=== PATIENT | female | born 1955 | race Caucasian/White ===

== ENCOUNTER 2017-04-05 18:37 | Inpatient (IN) | payer OTHER ==
[~2017-04-05] VITALS: Ht 160 cm; Wt 86.2 kg
--- NOTE | 2017-04-05 18:45 | NUR ---
BBRA [id number] FROM HOME C/C ABD PAIN AND L FLANK PAIN SINCE TODAY, NAD NOTED, VSS, RESP EVEN AND UNLABORED, PT PUT ON MONITOR, WAITING FOR MD SNYDER.
[2017-04-05] MEDS ORDERED: ONDANSETRON HCL/PF 4 MG/2 ML VIAL ONE (18:48)
[2017-04-05 18:56] LABS: APPEARANCE,URINE Clear (CLEAR); BILIRUBIN,URINE Negative (NEGATIVE); BLOOD, URINE Small Ery/uL (NEGATIVE); COLOR,URINE Yellow (YELLOW); KETONES,URINE Negative (NEGATIVE); LEUKOCYTE ESTERASE ,URINE Negative (NEGATIVE); NITRITE, URINE Negative (NEGATIVE); PH,URINE 5.5 (5.0-8.0); PROTEIN,URINE >=300 mg/dl (NEGATIVE); UGLUCOSE Negative (NEGATIVE); UROBILINOGEN,URINE 0.2 EU/dL (0.2)
[2017-04-05] MEDS ORDERED: ONDANSETRON HCL/PF 4 MG/2 ML VIAL IVP ONE (19:00)
[2017-04-05] MEDS ORDERED: IV NS 0.9% 1,000 ML BAG IV ONE (19:00)
[2017-04-05 19:01] LABS: BASOPHILS % (AUTO) 0.2 % (0.0-2.0); EOSINOPHILS % (AUTO) 0.3 % (0.0-6.0); HEMATOCRIT 44 % (33-45); HEMOGLOBIN 14.8 g/dL (11.5-14.8); LYMPHOCYTES # (AUTO) 1.7 /CMM (0.8-4.8); LYMPHOCYTES % (AUTO) 13.6 % (20.0-44.0); MEAN CORPUSCULAR HEMOGLOBIN 30 PG (26.0-33.0); MEAN CORPUSCULAR HGB CONC 33 g/dl (31.0-36.0); MEAN CORPUSCULAR VOLUME 89 fL (82-100); MONOCYTES # (AUTO) 0.4 /CMM (0.1-1.30); MONOCYTES % (AUTO) 3.4 % (2.0-12.0); NEUTROPHILS # (AUTO) 10.1 /CMM (1.8-8.9); NEUTROPHILS % (AUTO) 82.5 % (43.0-81.0); PLATELET COUNT (AUTO) 343 /CMM (150-450); RDW COEFFICIENT OF VARIATION 12.1 (11.5-15.0); RED BLOOD CELL COUNT(AUTO) 4.98 MIL/uL (4.0-5.2); WHITE BLOOD COUNT (AUTO) 12.2 K/uL (4.3-11.0)
[2017-04-05] MEDS ORDERED: MORPHINE SULFATE INJ 4 MG/ML DISP.SYRIN ONE (19:04)
[2017-04-05 19:08] LABS: BACTERIA,URINE Rare /HPF (None Seen); HYALINE CASTS, URINE Few /LPF (None Seen); SQUAMOUS EPITHELIAL CELL,UR Few /HPF (None Seen); WBC,URINE NONE SEEN /HPF (0-3)
[2017-04-05] MEDS ORDERED: MORPHINE SULFATE INJ 2 MG/ML DISP.SYRIN IV ONE (19:30)
[2017-04-05] MEDS ORDERED: HYDROMORPHONE 1 MG/1 ML DISP.SYRIN IV ONE ×2 (19:30→21:00)
[2017-04-05 19:32] LABS: ALANINE AMINOTRANSFERASE 66 U/L (12-78); ALBUMIN 4.1 g/dL (3.4-5.0); ALKALINE PHOSPHATASE 67 U/L (46-116); ASPARTATE AMINOTRANSFERASE 29 U/L (15-37); BILIRUBIN,TOTAL 0.4 mg/dL (0.2-1.0); CALCIUM, SERUM 9.5 mg/dL (8.5-10.1); CARBON DIOXIDE 26 mmol/L (21-32); CHLORIDE 105 mmol/L (98-107); CREATININE 0.8 mg/dL (0.6-1.3); GLUCOSE 172 mg/dL (74-106); LIPASE 113 U/L (73-393); SODIUM SERUM 141 mmol/L (136-145); UREA NITROGEN, BLOOD 15 mg/dL (7-18)
[2017-04-05] MEDS ORDERED: HYDROMORPHONE 1 MG/1 ML DISP.SYRIN ONE ×2 (19:39→21:00)
[2017-04-05 19:50] LABS: TROPONIN I < 0.017 ng/mL (0.00-0.056)
--- NOTE | 2017-04-05 20:47 | NUR ---
PAGED DR ESTRADA (ON-CALL SURGEON)
--- NOTE | 2017-04-05 20:55 | NUR ---
PAGED [facility] DOCTOR FOR PANEL
[2017-04-05] MEDS ORDERED: IV NS 0.9% 1,000 ML IV ONE (21:00)
[2017-04-05] MEDS ORDERED: PIPERACILLIN /TAZOBACTAM 3.375 G in IV D5W 50 ML IV ONE (21:00)
[2017-04-05] MEDS ORDERED: PIPERACILLIN /TAZOBACTAM 3.375 G VIAL IV ONE (21:12)
[2017-04-05] MEDS ORDERED: IV D5/0.45 NACL 1,000 ML IV PRN (21:16)
[2017-04-05] MEDS ORDERED: MAG HYDROX/AL HYDROX/SIMETH 30 ML UDC PO PRN (21:30)
[2017-04-05] MEDS ORDERED: ACETAMINOPHEN 325 MG TABLET PO PRN (21:30)
[2017-04-05] MEDS ORDERED: MORPHINE SULFATE INJ 2 MG/ML DISP.SYRIN IV PRN (21:30)
[2017-04-05] MEDS ORDERED: MAGNESIUM HYDROXIDE 30 ML UDC PO PRN (21:30)
[2017-04-05] MEDS ORDERED: LEVOFLOXACIN 750 MG /D5W 150ML 750 MG in PREMIX 1 EA IV SCH (21:30)
[2017-04-05] MEDS ORDERED: ZOLPIDEM TARTRATE 5 MG TABLET PO PRN (21:30)
[2017-04-05] MEDS ORDERED: Z GUARD REMEDY 2 OZ OINT TP PRN (21:30)
[2017-04-05 21:36] LABS: BAND % (MANUAL) 4 % (0.0-5.0); LYMPHOCYTES % (MANUAL) 17 % (16-48); NEUTROPHILS % (MANUAL) 79 (42-76)
[2017-04-05 21:37] LABS: INR 0.93 (0.87-1.13)
--- NOTE | 2017-04-05 21:52 | NUR ---
NGT INSERTED, CALLED XRAY FOR CONFIRMATION OF PLACEMENT.
[2017-04-05 22:26] VITALS: BP 160/93
--- NOTE | 2017-04-05 22:26 | NUR ---
ADMISSION NOTES RECEIVED PATIENT FROM ER VIA GURNEY, ACCOMPANIED BY STAFF. A & O X 4. RESP EVEN & NON LABORED. NO O2 NEEDED @ THIS TIME. ABLE TO MAKE NEEDS KNOWN. HAS C/O ABDOMINAL PAIN 06/30, BUT REFUSED TO TAKE ANY PRN PAIN MEDICINE YET, WANTED TO WAIT UNTIL PAIN STARTS INCREASING. NO N/V @ THIS TIME. NPO. ABD SOFT & NON TENDER, HAD BM IN AM, PER PT. NG TUBE IN PLACE. PLACEMENT CHECKED, NOTED WITH LIGHT YELLOW COLOR CLEAR FLUID. ON ASPIRATION PRECAUTIONS. IV ACCESS TO LAC, INTACT PATENT, RUNNING WITH D5 1/2 NS @ 75 ML/HR. FAMILY @ BEDSIDE. ALL BELONGINGS ACCOUNTED FOR & DOCUMENTED. SKIN INTACT. IN SEMI RODRIGUEZ POSITION. V/S CHECKED. ON TELE MONITORING WITH SR 71. BED IN LOW LOCKED POSITION. CALL LIGHT WITHIN REACH. WILL CONTINUE TO MONITOR.
[2017-04-05 22:30] VITALS: BP 160/93
--- NOTE | 2017-04-05 22:30 | NUR ---
UX RESEARCH ASSOCIATE NOTES DURING ASSESSMENT UPON ADMISSION, PT NOTED TO BE AGITATED & WAS INAPPROPRIATE TOWARDS THE NURSES. WAS IN PAIN & WANTED TO REST. PAIN MED GIVEN IN ER JUST A WHILE AGO. FOR BODY ASSESSMENT PT SAID HER BODY IS CLEAR, HAS ONLY AGE SPOTS. GAVE SPACE TO THE PATIENT SO COULD CALM DOWN & RELAX. WILL MONITOR CLOSELY.
[2017-04-05] MEDS ORDERED: LEVOFLOXACIN 750 MG /D5W 150ML 150 ML IV ONE (23:03)
[2017-04-05 23:30] VITALS: BP 141/83
--- NOTE | 2017-04-06 00:58 | NUR ---
VISITED PT SEEN BY DR GASCA WITH NEW ORDERS. NOTED & CARRIED OUT. WILL OBSERVE CLOSELY.
--- NOTE | 2017-04-06 00:59 | NUR ---
NEW ORDER PATIENT C/O ABDOMINAL PAIN & WANTED TO TAKE ONLY DILAUDID. MD MAKING ROUND ON FLOOR 3 WEST @ THIS TIME. INFORMED MD WITH NEW ORDER. NOTED & CARRIED OUT.
[2017-04-06] MEDS ORDERED: HYDROMORPHONE INJ 2 MG/ML DISP.SYRIN IV PRN (01:00)
[2017-04-06] MEDS ORDERED: HYDROMORPHONE INJ 2 MG/ML DISP.SYRIN ONE (01:07)
[2017-04-06] MEDS: HYDROMORPHONE INJ 2 MG/ML DISP.SYRIN IV PRN ×4 (01:18→21:09)
--- NOTE | 2017-04-06 01:18 | NUR ---
PRN DILAUDID GIVEN PATIENT HAD C/O PAIN 8/10, ABDOMINAL AREA. PRN DILAUDID WAS GIVEN PER PT REQUEST. WILL REASSESS FOR EFFECTIVENESS.
[2017-04-06] MEDS ORDERED: ONDANSETRON HCL/PF 4 MG/2 ML VIAL ONE (01:58)
[2017-04-06] MEDS: ONDANSETRON HCL/PF 4 MG/2 ML VIAL IVP PRN ×3 (02:00→18:25)
--- NOTE | 2017-04-06 02:00 | NUR ---
PRN ZOFRAN GIVEN PATIENT VOMITED LIGHT YELLOW COLOR CLEAR LIQUID X 1, NAUSEA PRESENT. PRN ZOFRAN GIVEN. WILL REASSESS FOR EFFECTIVENESS.
[2017-04-06 02:45] VITALS: BP 129/74
[2017-04-06] MEDS: IV D5/0.45 NACL 1,000 ML IV PRN ×2 (03:18→17:10)
[2017-04-06 04:00] VITALS: BP 129/74
--- NOTE | 2017-04-06 07:03 | NUR ---
CROZE MACHINE OPERATOR CLOSING NOTES PT SLEPT INTERMITTENTLY @ NIGHT. A & O X 4. RESP EVEN & NON LABORED. HAD C/O PAIN, N/V @ NIGHT. PRN MEDS GIVEN & WERE EFFECTIVE. IV ACCESS TO LAC, INTACT PATENT, RUNNING WITH D5 1/2 NS @ 100ML/HR. ON ASPIRATION PRECAUTIONS, IN SEMI RODRIGUEZ POSITION WHICH IS PT'S PREFERRED POSITION. PT NOTED TO BE INAPPROPRIATE @ TIMES TOWARDS STAFF. NPO. NG TUBE IN PLACE, ON LOW PRESSURE SUCTIONING ORDERED. ASSISTED WITH ALL ADL'S. URINATED DARK YELLOW COLOR URINE IN BSC. N/V & PAIN STABILIZED AFTER PRN MEDS WERE GIVEN. PT APPRECIATED FOR HELP. BED IN LOW LOCKED POSITION. CALL LIGHT WITHIN REACH. ENDORSED TO AM RN FOR CONTINUITY OF CARE.
[2017-04-06 07:29] LABS: BASOPHILS % (AUTO) 0.1 % (0.0-2.0); HEMATOCRIT 33 % (33-45); HEMOGLOBIN 11.5 g/dL (11.5-14.8); LYMPHOCYTES # (AUTO) 1.3 /CMM (0.8-4.8); LYMPHOCYTES % (AUTO) 12.3 % (20.0-44.0); MEAN CORPUSCULAR HEMOGLOBIN 31 PG (26.0-33.0); MEAN CORPUSCULAR HGB CONC 35 g/dl (31.0-36.0); MEAN CORPUSCULAR VOLUME 90 fL (82-100); MONOCYTES # (AUTO) 0.7 /CMM (0.1-1.30); MONOCYTES % (AUTO) 6.6 % (2.0-12.0); NEUTROPHILS # (AUTO) 8.5 /CMM (1.8-8.9); PLATELET COUNT (AUTO) 247 /CMM (150-450); RDW COEFFICIENT OF VARIATION 12.8 (11.5-15.0); RED BLOOD CELL COUNT(AUTO) 3.67 MIL/uL (4.0-5.2); WHITE BLOOD COUNT (AUTO) 10.5 K/uL (4.3-11.0)
--- NOTE | 2017-04-06 07:30 | NUR ---
RN OPEN NOTES RECEIVED REPORT FROM CREATIVE RECRUITER NURSE. PATIENT IS IN BED. ALERT AND ORIENTED TO NAME, PLACE AND TIME. NG TUBE CONNECTED TO INTERMITTENT SUCTIONING WITH NO FLUID BEING SUCTIONED. NO SIGNS AND SYMPTOMS OF DISTRESS. PAIN LEVEL 2/10. BED IN LOW POSITION, LOCKED AND TWO SIDE RAILS ARE UP. CALL LIGHT WITHIN REACH FOR SAFETY. WILL CONTINUE TO MONITOR AND ASSESS PATIENT.
[2017-04-06 07:34] LABS: INR 1.01 (0.87-1.13)
[2017-04-06] MEDS ORDERED: LORA10TA68 PO (07:57)
[2017-04-06] MEDS ORDERED: CHOL100062 PO (07:57)
[2017-04-06] MEDS ORDERED: GUAI600T53 PO (07:57)
[2017-04-06] MEDS ORDERED: LEVO125T8 PO (07:57)
[2017-04-06] MEDS ORDERED: OMEP40CA37 PO (07:57)
[2017-04-06 07:58] LABS: THYROID STIMULATING HORMONE 0.923 uIU/mL (0.358-3.74)
[2017-04-06 08:00] VITALS: BP 132/70
[2017-04-06 08:08] LABS: ALBUMIN 3.4 g/dL (3.4-5.0); BILIRUBIN,TOTAL 0.4 mg/dL (0.2-1.0); CALCIUM, SERUM 8.3 mg/dL (8.5-10.1); CREATININE 0.8 mg/dL (0.6-1.3); PHOSPHORUS 3.6 mg/dL (2.5-4.9); TOTAL PROTEIN, SERUM 6.7 g/dL (6.4-8.2)
[2017-04-06 08:18] LABS: MAGNESIUM 1.1 mg/dL (1.8-2.4)
[2017-04-06] MEDS ORDERED: Magnesium 1 GM/2 ML VIAL IV ONE (09:00)
[2017-04-06] MEDS: PANTOPRAZOLE 40 MG VIAL IV SCH (09:15)
[2017-04-06] MEDS: Magnesium 1GM/D5W 100ML PREMIX 100 ML IV SCH ×4 (09:57→16:20)
--- NOTE | 2017-04-06 11:45 | NUR ---
PATIENT IS OFF THE FLOOR FOR X RAY
[2017-04-06] MEDS ORDERED: DIATR MEGLU/DIATRIZOATE SODIUM 120 ML BOTTLE (GASTROGRAPHIN) ONE ×2 (12:12→12:37)
--- NOTE | 2017-04-06 13:17 | NUR ---
patient returned to floor at 1310. NGT pulled out due to vomiting. patient put back on fluid. will insert a new NST
[2017-04-06] MEDS: METRONIDAZOLE 500MG/ NS 100ML 500 MG in PREMIX 1 EA IV SCH ×3 (13:40→23:05)
--- NOTE | 2017-04-06 14:10 | NUR ---
NGT INSERTED. PLACEMENT AT 76CM. 16 SRI LANKAN. PATIENT TOLERATED PROCEDURE WELL. ORDERED KUB FOR PLACEMENT
[2017-04-06 16:00] VITALS: BP 128/68
--- NOTE | 2017-04-06 19:20 | NUR ---
RN CLOSING NOTES ENDORSED TO SHINE WORKER NURSE. PATIENT IS IN BED. FRIEND IS AT BEDSIDE. NO SIGNS AND SYMPTOMS OF DISTRESS. NG TUBE AT 76CM, SUCTIONING AT INTERMITTENT. ALL NURSING CARE ANTICIPATED AND ATTENDED FOR. PATIENT KEPT CLEAN AND DRY. BED IN LOW POSITION, LOCKED AND TWO SIDE RAILS ARE UP. CALL LIGHT WITHIN REACH FOR SAFETY.
--- NOTE | 2017-04-06 19:30 | NUR ---
MS RN OPEN NOTES PATIENT IS IN BED. AWAKE AND ALERT, ABLE TO MAKE NEEDS KNOWN. NG TUBE CONNECTED TO INTERMITTENT SUCTIONING, 600 ML OUTPUT NOTED. NO SIGNS AND SYMPTOMS OF DISTRESS, BREATHING EVENLY AND UNLABORED ON RA. DENIES PAIN AT THIS TIME. BED IN LOW POSITION, LOCKED AND TWO SIDE RAILS ARE UP. CALL LIGHT WITHIN REACH. WILL CONTINUE TO MONITOR PT.
[2017-04-06 20:00] VITALS: BP 122/76
[2017-04-06] MEDS: LEVOFLOXACIN 750 MG /D5W 150ML 750 MG in PREMIX 1 EA IV SCH (21:02)
--- NOTE | 2017-04-06 22:01 | NUR ---
PT RF ABG
[2017-04-07] MEDS: ONDANSETRON HCL/PF 4 MG/2 ML VIAL IVP PRN ×2 (03:46→19:01)
[2017-04-07] MEDS: HYDROMORPHONE INJ 2 MG/ML DISP.SYRIN IV PRN ×2 (04:22→17:06)
[2017-04-07] MEDS: METRONIDAZOLE 500MG/ NS 100ML 500 MG in PREMIX 1 EA IV SCH ×3 (05:52→17:09)
--- NOTE | 2017-04-07 06:31 | NUR ---
MS RN CLOSING NOTES PATIENT IS IN BED RESTING. NO SIGNS AND SYMPTOMS OF DISTRESS. NG TUBE AT 76CM, SUCTIONING AT INTERMITTENT. PT WAS ABLE TO USE THE COMMODE TO URINATE, AFTER COMPLAINTS OF NOT BEING ABLE TO URINATE ALL DAY. URINE OUTPUT WAS 400 ML. EPISODES OF NAUSEA DECREASED. ALL NEEDS WERE ANTICIPATED AND MET. BED IN LOW POSITION, CALL LIGHT WITHIN REACH. WILL ENDORSE TO DAYSHIFT
[2017-04-07 07:10] LABS: CALCIUM, SERUM 8.5 mg/dL (8.5-10.1); CREATININE 0.7 mg/dL (0.6-1.3); MAGNESIUM 2.4 mg/dL (1.8-2.4); PHOSPHORUS 2.8 mg/dL (2.5-4.9); POTASSIUM 3.4 mmol/L (3.5-5.1)
[2017-04-07 07:36] LABS: BASOPHILS % (AUTO) 0.3 % (0.0-2.0); EOSINOPHILS % (AUTO) 0.2 % (0.0-6.0); HEMATOCRIT 32 % (33-45); LYMPHOCYTES # (AUTO) 1.6 /CMM (0.8-4.8); LYMPHOCYTES % (AUTO) 14.1 % (20.0-44.0); MEAN CORPUSCULAR HEMOGLOBIN 31 PG (26.0-33.0); MEAN CORPUSCULAR HGB CONC 34 g/dl (31.0-36.0); MEAN CORPUSCULAR VOLUME 91 fL (82-100); MONOCYTES # (AUTO) 0.8 /CMM (0.1-1.30); MONOCYTES % (AUTO) 7.3 % (2.0-12.0); NEUTROPHILS # (AUTO) 8.9 /CMM (1.8-8.9); NEUTROPHILS % (AUTO) 78.1 % (43.0-81.0); PLATELET COUNT (AUTO) 247 /CMM (150-450); RDW COEFFICIENT OF VARIATION 13.2 (11.5-15.0); RED BLOOD CELL COUNT(AUTO) 3.52 MIL/uL (4.0-5.2); WHITE BLOOD COUNT (AUTO) 11.4 K/uL (4.3-11.0)
[2017-04-07 08:00] VITALS: BP 129/75
--- NOTE | 2017-04-07 08:00 | NUR ---
RN MS NOTES PT IN BED, AWAKE, ALERT AND ORIENTED, NO COMPLAINT OF PAIN OR DISCOMFORT AT THIS TIME, NG TUBE IN PLACE, IN INTERMITTENT SUCTION, IV FLUIDS INFUSING WELL, CALL LIGHT WITHIN REACH, NEEDS ATTENDED, KEPT COMFORTABLE.
[2017-04-07] MEDS ORDERED: POTASSIUM CL. PREMIX PERIPHER. 50 ML IV ONE (09:00)
[2017-04-07] MEDS: PANTOPRAZOLE 40 MG VIAL IV SCH (09:08)
[2017-04-07] MEDS ORDERED: POTASSIUM CHLORIDE 20 MEQ TAB.PRT.SR PO ONE (10:00)
[2017-04-07] MEDS: IV D5/0.45 NACL 1,000 ML IV PRN (10:11)
--- NOTE | 2017-04-07 12:10 | NUR ---
RN MS NOTES PT IN BED, RESTING, FRIEND AT BEDSIDE, DENIES PAIN AT THIS TIME, NO NAUSEA OR VOMITING NOTED, IV FLUIDS INFUSING WELL, SEEN BY DR. ESTRADA, DR. HARDY AND NANO SPRAY BOOTH OPERATOR THIS MORNING, PLAN OF CARE DISCUSSED WITH PT, VERBALIZED UNDERSTANDING, AWAITING CT SCAN AND GI CONSULT, CALL LIGHT WITHIN REACH, NEEDS ATTENDED.
--- NOTE | 2017-04-07 14:45 | NUR ---
RN MS NOTES PT SEEN BY DR. LEON, AWAITING CT ABD AND PELVIS RESULT.
[2017-04-07 16:00] VITALS: BP 123/77
--- NOTE | 2017-04-07 18:28 | NUR ---
RN MS NOTES PT IN BED, SLEEPING INTERMITTENTLY, EASY TO AROUSE, PAIN MEDICATION GIVEN FOR PAIN MANAGEMENT, NO NAUSEA OR VOMITING NOTED, PER DR. LEON, PT CAN START EATING BUT PT REFUSED BECAUSE SHE WILL SEE HER MD IN [facility], PT PLANNING TO GO HOME AFTER CT SCAN, NANO WELDING MACHINE ASSEMBLER INFORMED.
[2017-04-07 20:00] VITALS: BP 129/75
[2017-04-07 20:12] VITALS: BP 129/75
[2017-04-07] MEDS: LEVOFLOXACIN 750 MG /D5W 150ML 750 MG in PREMIX 1 EA IV SCH (22:01)
[2017-04-08] MEDS: METRONIDAZOLE 500MG/ NS 100ML 500 MG in PREMIX 1 EA IV SCH ×3 (00:35→11:30)
[2017-04-08] MEDS: ONDANSETRON HCL/PF 4 MG/2 ML VIAL IVP PRN (01:02)
[2017-04-08] MEDS: HYDROMORPHONE INJ 2 MG/ML DISP.SYRIN IV PRN (01:20)
[2017-04-08] MEDS: IV D5/0.45 NACL 1,000 ML IV PRN (03:56)
--- NOTE | 2017-04-08 04:36 | NUR ---
RN NOTES No significant change in condition. No change in mental and alertness status. Breathing regular and non-labored. Due meds given as ordered. Assisted when using bedeside commode. Pain medication given as ordered, c/o nausea, Zofran given as ordered. All needs attended. Will continue to monitor.
--- NOTE | 2017-04-08 07:30 | NUR ---
GABE MONTERO NOTES PT IN BED, RESTING, NO SIGN OF PAIN OR DISCOMFORT, BREATHING PATTERN REGULAR, ON NON REBREATHER MASK AT 15LPM, ON MORPHINE DRIP VIA PICC LINE AT RIGHT UPPER ARM, INTACT AND PATENT, F/C IN PLACE, KEPT WARM AND COMFORTABLE. Addendum: 04/08/17 at 0743 by JAMIE LOPEZ RN PLEASE DISREGARD ABOVE NOTES, IT IS MEANT FOR A DIFFERENT PATIENT, THANK YOU.
[2017-04-08 07:39] LABS: BASOPHILS % (AUTO) 0.2 % (0.0-2.0); EOSINOPHILS % (AUTO) 0.6 % (0.0-6.0); HEMATOCRIT 29 % (33-45); HEMOGLOBIN 10.2 g/dL (11.5-14.8); LYMPHOCYTES # (AUTO) 2.1 /CMM (0.8-4.8); LYMPHOCYTES % (AUTO) 25.1 % (20.0-44.0); MEAN CORPUSCULAR HEMOGLOBIN 32 PG (26.0-33.0); MEAN CORPUSCULAR HGB CONC 35 g/dl (31.0-36.0); MEAN CORPUSCULAR VOLUME 90 fL (82-100); MONOCYTES # (AUTO) 0.6 /CMM (0.1-1.30); MONOCYTES % (AUTO) 7.5 % (2.0-12.0); NEUTROPHILS # (AUTO) 5.4 /CMM (1.8-8.9); NEUTROPHILS % (AUTO) 66.6 % (43.0-81.0); PLATELET COUNT (AUTO) 201 /CMM (150-450); RDW COEFFICIENT OF VARIATION 12.9 (11.5-15.0); RED BLOOD CELL COUNT(AUTO) 3.24 MIL/uL (4.0-5.2); WHITE BLOOD COUNT (AUTO) 8.2 K/uL (4.3-11.0)
[2017-04-08 07:50] LABS: CALCIUM, SERUM 8.6 mg/dL (8.5-10.1); CREATININE 0.7 mg/dL (0.6-1.3); POTASSIUM 3.3 mmol/L (3.5-5.1)
--- NOTE | 2017-04-08 07:57 | NUR ---
MS/RN OPENING NOTE PATIENT IN BED IN STABLE CONDITION. A/O X 4. NO SIGNS OF ACUTE DISTRESS. NO COMPLAIN OF PAIN OR DISCOMFORT. ALL NEEDS ATTENDED TO. CALL LIGHT WITHIN REACH. WILL CONTINUE TO MONITOR TO ENSURE SAFETY.
[2017-04-08 08:00] VITALS: BP 143/73
[2017-04-08] MEDS: PANTOPRAZOLE 40 MG VIAL IV SCH (08:36)
[2017-04-08] MEDS: POTASSIUM CHLORIDE 20 MEQ TAB.PRT.SR PO SCH ×2 (08:36→10:15)
[2017-04-08] MEDS ORDERED: ONDA4TAB5 PO (14:34)
[2017-04-08] MEDS ORDERED: OXYC-128 PO (14:34)
--- NOTE | 2017-04-08 15:28 | NUR ---
MS/ASSEMBLER FINAL PATIENT DISCHARGE HOME IN STABLE CONDITION. A/O X 4. NO SIGNS OF ACUTE DISTRESS. NO COMPLAIN OF PAIN OR DISCOMFORT. DISCHARGE INSTRUCTIONS AND TEACHINGS PROVIDED, VERBALIZED UNDERSTANDING. ALSO MADE AWARE TO FOLLOW UP WITH PRIMARY PHYSICIAN WITHIN A WEEK. PER PATIENT, PATIENT HAS APPOINTMENT SCHEDULED FOR TOMORROW WITH PRIMARY PHYSICIAN. ALL NEEDS ATTENDED TO. NAME BAND AND IV LINE REMOVED. LEFT VIA PRIVATE CAR ACCOMPANIED BY PARTNER IN STABLE CONDITION.
== END 2017-04-08 15:24 | disposition home or self-care (01) | DRG 384 ==
LOC: ER 18:41 → TELE 21:33 → MED 04-06 11:42
PROVIDERS: ADMIT Internal Medicine; ATTEND Internal Medicine
DX: K26.3 Acute duodenal ulcer without hemorrhage or perforation (principal); K76.0 Fatty (change of) liver, not elsewhere classified; E83.42 Hypomagnesemia; K57.92 Diverticulitis of intestine, part unspecified, without perforation or abscess without bleeding; R10.9 Unspecified abdominal pain; D72.829 Elevated white blood cell count, unspecified; E03.9 Hypothyroidism, unspecified; K21.9 Gastro-esophageal reflux disease without esophagitis; K58.9 Irritable bowel syndrome, unspecified; E66.9 Obesity, unspecified; E86.0 Dehydration; E87.6 Hypokalemia; Z87.891 Personal history of nicotine dependence; D64.9 Anemia, unspecified; Z68.33 Body mass index [BMI] 33.0-33.9, adult; Z88.0 Allergy status to penicillin
CPT/HCPCS: 36415; 71045-TC; 71046; 74018; 74246-TC; 76770-TC; 80048-TC; 80053-TC; 80061-TC; 80076-TC; 81000-TC; 82150-TC; 82746; 83540-TC; 83690-TC; 83735-TC; 84100-TC; 84443-TC; 84484-TC; 85025-TC; 85610-TC; 85730-TC; 86850-TC; 87040-TC; 87081-TC; A4216; A4606; C9113; J1170; J1956; J2270; J2405; J2543; J3475; J3480; J3490; J7030; J7040; J7060; Q9963; Z7610